=== PATIENT | female | born 1965 | race Caucasian/White ===

== ENCOUNTER 2018-04-12 14:45 | Outpatient (CLI) ==
--- NOTE | 2018-04-12 15:55 | DI ---
EXAM: Two views of the chest. History: Cough. Findings: Heart size is normal. No focal consolidation. No appreciable pleural fluid and no pneumo thorax. No acute osseous abnormalities. Postsurgical changes of the cervical spine Impression: No acute cardiopulmonary process.
== END 2018-04-12 14:46 | disposition home or self-care (01) ==
LOC: RHC-LAB 14:45
PROVIDERS: ATTEND General Practice
DX: R05 Cough (principal); R50.9 Fever, unspecified; R06.7 Sneezing; J31.0 Chronic rhinitis
CPT/HCPCS: 87502; 87651; 87801

== ENCOUNTER 2018-11-27 08:00 | Outpatient (RCR) ==
--- NOTE | 2018-11-15 16:45 | RS.OPPTEV2 ---
Date of Note: 11/15/18 Visit #: 1 Number of visits approved by Insurance: 19 visits Date of Evaluation: 11/15/18 Payer Source: Insurance ([employer]) Treatment Diagnosis: Cervicalgia History of Condition/Mechanism of Injury:: Patient reports neck pain for approximately the last three months. She reports no specific injury. Her history includes Anterior Cervical fusion 13 years ago. Prior Level of Function.....Patient was independent with: ADL's, Self Care, Work /Vocation, Caregiving, Ambulation/Mobility, Community Integration/Access Functional Limitations: Sleep, ADL's, Reaching Current Subjective/complaints:: Patient reports pain into the right scapula and a constant ache into the right arm. She denies symptoms on the left UE. Reports frequent headaches. States she wakes up 7-8 times per night due to pain. States driving very long causes increased pain in the scapula and tingling into the right UE. 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 She has used Icy hot patches and Epsom salt baths to get some relief of pain. She wants to avoid another neck surgery. Medical History Medical History: Hypertension Surgical History Comments:: ACF two levels 13 years ago, Lumbar fusion 25+ years ago, nephrectomy, Cholecystectomy Smoking Status: Current every day smoker Hx Home Medications: Atenolol, Flexeril, Ibuprofen PRN Patient's Goals: Her goal is to get relief of neck pain and avoid surgery. Pain Assessment - Pain Description Pain Location: right neck and periscapula area Pain Description: Aching Current Pain Intensity: 3/10 Worst Pain Intensity: 7/10 Functional Outcome Measure Neck Disability Index: 34 - G Codes & Severity Modifier G Codes & Modifier: NA Source of G Code score: NA Observation - Observation Posture: Forward Head, Rounded Shoulders Handedness: Right - ROM Comments: Cervical AROM is WFL's into flexion and extension. Rotation Left 75% of normal and Rotation Right 50-60% of normal. Extension and right rotation reproduces right scapular pain. Bilateral UE AROM is WFL's. - Strength Comments: Bilateral UE strength 4+/5. Palpation Comments:: Demonstrates tenderness over the right levator scapula and upper traps. Demonstrates minimal increased muscle tone in that area. Demonstrates moderate increased muscle tone in the left upper traps and bilateral lower cervical paraspinals. Sensation - Sensation Right Upper Extremity: Intact/Normal Left Upper Extremity: Intact/Normal Interventions - Exercise/Activities/Manual Therapy Exercises/Activities: Patient instructed in stretching into lateral flexion and rotation, as well as corner stretch. Manual Therapy: Patient received DTM to lower cervical paraspinals, upper and middle traps bilaterally. Demonstrates active trigger points along the superior border of the left scapula. Muscle tone is decreased to minimal bilaterally with manual therapy. Total minutes of Manual Therapy: 14 mins HOME EXERCISE PROGRAM: stretching into lateral flexion and rotation, as well as corner stretch. - Charges Timed Code Treatment Minutes: 14 mins Total Treatment Time: 55 mins Procedures billed for this date of service:: BERTHA Pacheco, Manual therapy EVALUATION COMPLEXITY LEVEL EVALUATION COMPLEXITY LEVEL: HISTORY: Low, EXAM OF BODY SYSTEMS: Low, CLINICAL PRESENTATION: Low, CLINICAL DECISION MAKING: Low Assessment Assessment: Patient presents to therapy with a diagnosis of Cervicalgia. She reports pain on the right side of the neck and into the right scapula. She exhibits muscle guarding along the lower cervical paraspinals and bilateral upper and middle traps. Reports interrupted sleep and difficulty with activities such as driving due to pain. She demonstrates potential to benefit from manual therapy, stretching and postural exercises to gain relief of pain. Patient Education: Education of diagnosis, Body/Joint mechanics, Home Exercise Program, Activity Modification, Education of Plan of Care Rehab Potential: Good Short Term Goals Goal #1: Right periscapular pain decreased to less than constant. Goal to be met by: 11/25/18 Goal #2: Muscle tone along cervical spine and upper traps decreased to min. Goal to be met by: 11/25/18 Goal #3: Right UE symptoms localized to the neck. Goal to be met by: 11/29/18 Goal #4: Pt to demonstrate good postural awareness. Goal to be met by: 11/29/18 Snf Goals Goal #1: Pt knows HEP and to continue ex's to maintain functional level at D/C. Goal to be met by: 01/04/19 Goal #2: Score on Neck Disability Index improved to 16. Goal to be met by: 01/04/19 Goal #3: Pt able to sleep at night with minimal interruption from neck pain. Goal to be met by: 01/04/19 Goal #4: Pt able to perform home and work activities with minimal neck pain. Goal to be met by: 01/04/19 Plan - Treatment to be Provided Procedures: Therapeutic Exercises, Therapeutic Activity, Manual Therapy, Patient Education Modalities: Electrical Stimulation, Ultrasound/Phonophoresis, Cryotherapy, Hot Packs, Mechanical Traction (Cervical traction) - Treatment Plan Frequency: 2-3 X week Duration: 6 weeks Dates of Teller Goals: 01/04/19 Expiration date of current Insurance Approval:: NA - Treatment Code (1) Cervicalgia Code(s): M54.2 - CERVICALGIA Comments: M54.2
--- NOTE | 2018-11-18 09:18 | RS.OPPTDN ---
Subjective Date of Note: 11/18/18 Visit #: 2 Number of visits approved by Insurance: 19 Date of Evaluation: 11/15/18 Payer Source: Insurance ([employer]) Treatment Diagnosis: Cervicalgia Current Subjective/complaints:: Patient reports her pain generally increases as the day progresses.She continues to have difficulty with sleeping .She is hopeful the therapy will help to avoid another surgery. Pain Assessment - Pain Description Pain Location: Cervical and R UE Pain Description: Radiating, Dull, Aching Current Pain Intensity: 3/10 - Treatment Modality: Ultrasound Parameters/Method Applied: 10 mins. @ 1.5 w/cm2,cont. mode to cervical and UT's region - Heat/Cryotherapy Treatment: Hot Pack (20 mins. prior to US) Interventions - Exercise/Activities/Manual Therapy Exercises/Activities: Reviewed HEP of stretching into lateral flexion and rotation, as well as corner stretch.Instructed in chin tucks also today. Total minutes of Exercise: 5 Manual Therapy: Patient received DTM bilaterally to lower cervical paraspinals, upper and middle traps.Trigger point pressure along each medial border of the scapulae. Total minutes of Manual Therapy: 20 HOME EXERCISE PROGRAM: stretching into lateral flexion and rotation, as well as corner stretch. - Charges Timed Code Treatment Minutes: 25 Total Treatment Time: 55 Procedures billed for this date of service:: hp,US,manual Assessment: Patient has significant hypertonus in bilateral upper traps today, along with multiple trigger points along the medial border of scapulae,greater on the R than L side.She has increased tenderness with palpation to C6 transverse process on the R.She is attentive ,compliant to HEP ,motivated to improve. Patient Education: Education of diagnosis, Body/Joint mechanics, Home Exercise Program, Home Safety, Activity Modification, Education of Plan of Care Patient demonstrates compliance with HEP?: Yes Short Term Goals Goal #1: Right periscapular pain decreased to less than constant. Goal to be met by: 11/25/18 Progress towards Goal:: Progressing Goal #2: Muscle tone along cervical spine and upper traps decreased to min. Goal to be met by: 11/25/18 Goal #3: Right UE symptoms localized to the neck. Goal to be met by: 11/29/18 Goal #4: Pt to demonstrate good postural awareness. Goal to be met by: 11/29/18 Progress towards Goal:: Progressing Associate Financial Advisor Goals Goal #1: Pt knows HEP and to continue ex's to maintain functional level at D/C. Goal to be met by: 01/04/19 Progress towards goal: Progressing Goal #2: Score on Neck Disability Index improved to 16. Goal to be met by: 01/04/19 Goal #3: Pt able to sleep at night with minimal interruption from neck pain. Goal to be met by: 01/04/19 Goal #4: Pt able to perform home and work activities with minimal neck pain. Goal to be met by: 01/04/19 Plan Dates of Associate Financial Advisor Goals: 01/04/19 Expiration date of current Insurance Approval:: 01/04/19 PLAN: Cont. skilled PT to reduce /eliminate cervical and R scapular pain.
--- NOTE | 2018-11-20 09:31 | RS.OPPTDN ---
Subjective Date of Note: 11/20/18 Visit #: 3 Number of visits approved by Insurance: 19 Date of Evaluation: 11/15/18 Payer Source: Insurance ([employer]) Treatment Diagnosis: Cervicalgia Current Subjective/complaints:: Patient reports relief after apst PT session.She did work last night for approximately 4 hours ,and had increased difficulty with sleeping last night.Her pain was elevated and cramping , radiating into the entire R UE / hand. Pain Assessment - Pain Description Pain Location: cervical / R UE Pain Description: Radiating, Dull, Aching, Chronic Current Pain Intensity: 4-5 Worst Pain Intensity: 9-10 last night - Treatment Modality: Ultrasound Parameters/Method Applied: 10 mins. , cont. mode @ 1.5 w/cm2 to cervical / UT's. Patient Position: Sitting - Heat/Cryotherapy Treatment: Hot Pack (20 mins. prior to US and cervical traction ) - Traction Treatment Method: Mechanical (Tolerated well for 8 mins. , reports cramping in the lower area of both scapulae.She feels this is due to history of LBP,sleeps on her side for comfort.), Intermittent, Cervical Patient Position: Supine Amount of Force Applied: 13 # Hold Time: 30 secs. Rest Time: 5 secs. Duration of treatment: 10 mins. Interventions - Exercise/Activities/Manual Therapy Exercises/Activities: Reviewed HEP while on moist heat. Total minutes of Exercise: 0 Manual Therapy: Patient received DTM bilaterally to lower cervical paraspinals, upper and middle traps.Trigger point pressure along each medial border of the scapulae. 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 Patient Education: Body/Joint mechanics, Home Exercise Program Patient demonstrates compliance with HEP?: Yes Short Term Goals Goal #1: Right periscapular pain decreased to less than constant. Goal to be met by: 11/25/18 Progress towards Goal:: Regressing (increased after traction today) Goal #2: Muscle tone along cervical spine and upper traps decreased to min. Goal to be met by: 11/25/18 Goal #3: Right UE symptoms localized to the neck. Goal to be met by: 11/29/18 Goal #4: Pt to demonstrate good postural awareness. Goal to be met by: 11/29/18 Progress towards Goal:: Progressing Half-Way Goals Goal #1: Pt knows HEP and to continue ex's to maintain functional level at D/C. Goal to be met by: 01/04/19 Progress towards goal: Progressing Goal #2: Score on Neck Disability Index improved to 16. Goal to be met by: 01/04/19 Goal #3: Pt able to sleep at night with minimal interruption from neck pain. Goal to be met by: 01/04/19 Goal #4: Pt able to perform home and work activities with minimal neck pain. Goal to be met by: 01/04/19 Plan Dates of Central Office Operator Goals: 01/04/19 Expiration date of current Insurance Approval:: 01/04/19 PLAN: Cont. skilled PT to reduce/eliminate cervical pain and radiculopathy .
--- NOTE | 2018-11-22 08:59 | RS.OPPTDN ---
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 Pain Assessment - Pain Description Pain Location: cervical/both shoulders Pain Description: Radiating, Dull, Aching, Chronic Current Pain Intensity: 7 Worst Pain Intensity: 10 - Treatment Modality: Ultrasound Parameters/Method Applied: 10 mins. @ 1.5 w/cm2,cont. mode to cervical /UT's. - Heat/Cryotherapy Treatment: Hot Pack (20 mins. prior to US 20 mins. cold after) Interventions - Exercise/Activities/Manual Therapy Exercises/Activities: withheld today due to pain. Total minutes of Exercise: 0 Manual Therapy: Patient received DTM bilaterally to lower cervical paraspinals, upper and middle traps.Trigger point pressure along each medial border of the scapulae. Total minutes of Manual Therapy: 0 HOME EXERCISE PROGRAM: stretching into lateral flexion and rotation, as well as corner stretch,chin tucks - Charges Timed Code Treatment Minutes: 10 Total Treatment Time: 30 Procedures billed for this date of service:: hp,US Assessment: Patient has elevated pain ,guarded posturedue to elevated pain today.She has increased tone in the UT's and cervical area.She undersrtands to hold the exercises until the pain subsides,resume as tolerated. Patient Education: Body/Joint mechanics, Home Safety, Activity Modification Patient demonstrates compliance with HEP?: Yes Short Term Goals Goal #1: Right periscapular pain decreased to less than constant. Goal to be met by: 11/25/18 Progress towards Goal:: Regressing (increased after traction today) Goal #2: Muscle tone along cervical spine and upper traps decreased to min. Goal to be met by: 11/25/18 Goal #3: Right UE symptoms localized to the neck. Goal to be met by: 11/29/18 Progress towards Goal:: Regressing (into both arms today) Goal #4: Pt to demonstrate good postural awareness. Goal to be met by: 11/29/18 Progress towards Goal:: Progressing Cutlery Grinder Goals Goal #1: Pt knows HEP and to continue ex's to maintain functional level at D/C. Goal to be met by: 01/04/19 Progress towards goal: Progressing Goal #2: Score on Neck Disability Index improved to 16. Goal to be met by: 01/04/19 Goal #3: Pt able to sleep at night with minimal interruption from neck pain. Goal to be met by: 01/04/19 Progress towards goal: Regressing Goal #4: Pt able to perform home and work activities with minimal neck pain. Goal to be met by: 01/04/19 Progress towards goal: Regressing Plan Dates of Cutlery Grinder Goals: 01/04/19 Expiration date of current Insurance Approval:: 01/04/19 PLAN: Cont. skilled PT ,reduce/eliminate cervical pain and radiculopathy.
--- NOTE | 2018-11-25 09:23 | RS.OPPTDN ---
Subjective Date of Note: 11/25/18 Visit #: 5 Number of visits approved by Insurance: na Date of Evaluation: 11/15/18 Payer Source: Insurance ([employer]) Treatment Diagnosis: Cervicalgia Current Subjective/complaints:: Patient reports her pain is less today ,used ice and heat ,able to retun to work normal shifts. Pain Assessment - Pain Description Pain Location: cervical/upper traps Pain Description: Dull, Aching Current Pain Intensity: 2-3/10 - Treatment Modality: Ultrasound Parameters/Method Applied: 10 mins. @ 1.5 w/cm2,cont. mode to cervical / upper traps . Patient Position: Sitting - Heat/Cryotherapy Treatment: Hot Pack (20 mins. prior to US) Interventions - Exercise/Activities/Manual Therapy Exercises/Activities: NA Total minutes of Exercise: o Manual Therapy: Patient received DTM bilaterally to lower cervical paraspinals, upper and middle traps.Trigger point pressure along each medial border of the scapulae. Total minutes of Manual Therapy: 20 HOME EXERCISE PROGRAM: stretching into lateral flexion and rotation, as well as corner stretch,chin tucks - Charges Timed Code Treatment Minutes: 20 Total Treatment Time: 40 Procedures billed for this date of service:: hp,US,manual therapy Assessment: Patient progressing ,has decreased guarding and less tone in the upper traps.She is doing her HEP as tolerated .She presents with a forward head posture today,but less guarded motion in the cervical region.She reports no pain between the scapulae at this time.She has improved awareness of her posture ,and body mechanics for work tasks and ADL's. Patient Education: Education of diagnosis, Body/Joint mechanics, Home Exercise Program, Home Safety, Activity Modification, Education of Plan of Care Patient demonstrates compliance with HEP?: Yes Short Term Goals Goal #1: Right periscapular pain decreased to less than constant. Goal to be met by: 11/25/18 Progress towards Goal:: Progressing (increased after traction today) Goal #2: Muscle tone along cervical spine and upper traps decreased to min. Goal to be met by: 11/25/18 Progress towards Goal:: Progressing Goal #3: Right UE symptoms localized to the neck. Goal to be met by: 11/29/18 Progress towards Goal:: Progressing Goal #4: Pt to demonstrate good postural awareness. 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 Goal to be met by: 01/04/19 Progress towards goal: Progressing Goal #2: Score on Neck Disability Index improved to 16. Goal to be met by: 01/04/19 Goal #3: Pt able to sleep at night with minimal interruption from neck pain. Goal to be met by: 01/04/19 Progress towards goal: Progressing Goal #4: Pt able to perform home and work activities with minimal neck pain. Goal to be met by: 01/04/19 Progress towards goal: Progressing Plan Dates of Black Studies Professor Goals: 01/04/19 Expiration date of current Insurance Approval:: 01/04/19 PLAN: Cont. skilled PT to reduce/eliminate cervical pain.
--- NOTE | 2018-11-27 09:44 | RS.OPPTDN ---
Subjective Date of Note: 11/27/18 Visit #: 6 Number of visits approved by Insurance: na Date of Evaluation: 11/15/18 Payer Source: Insurance ([employer]) Treatment Diagnosis: Cervicalgia Current Subjective/complaints:: Patient reports feeling better,but also has been of from work the past two days.She also reports doing the HEP. Pain Assessment - Pain Description Pain Location: cervical and medial borders of the scapulae Pain Description: Dull, Aching Current Pain Intensity: not rated - Treatment Modality: Ultrasound Parameters/Method Applied: 10 mins. @ 1.5 w/cm2,cont. mode to cervical and upper traps. Patient Position: Sitting - Heat/Cryotherapy Treatment: Hot Pack (20 mins. prior to US) Interventions - Exercise/Activities/Manual Therapy Exercises/Activities: 30 mins. total of supine cervical stretches into rotation ,lateral flexion ,chin tucks with retraction,occiital release.Trigger point pressure along the medial border of the R scapula in sitting.Postural exercises review in sitting ,doing scapular protraction "boxers punch " motion. Total minutes of Exercise: 30 Manual Therapy: na Total minutes of Manual Therapy: 0 HOME EXERCISE PROGRAM: stretching into lateral flexion and rotation, as well as corner stretch,chin tucks - Charges Timed Code Treatment Minutes: 40 Total Treatment Time: 60 Procedures billed for this date of service:: hp,US,ex 2 Assessment: Progressing well,has less frequency of R scapular pain at rest.She does have increased symptoms into the R UE with lateral flexion to the R today, but other motions of the C-spine do not cause radiculopathy.Her R scapula has tender trigger points at the upper region of the medial border. She is compliant to HEP. Patient Education: Body/Joint mechanics, Home Exercise Program, Activity Modification, Education of Plan of Care Patient demonstrates compliance with HEP?: Yes Short Term Goals Goal #1: Right periscapular pain decreased to less than constant. Goal to be met by: 11/25/18 Progress towards Goal:: Partially Met (less frequent today) Goal #2: Muscle tone along cervical spine and upper traps decreased to min. Goal to be met by: 11/25/18 Progress towards Goal:: Progressing Goal #3: Right UE symptoms localized to the neck. Goal to be met by: 11/29/18 Progress towards Goal:: Progressing Goal #4: Pt to demonstrate good postural awareness. Goal to be met by: 11/29/18 Progress towards Goal:: Partially Met Usp Goals Goal #1: Pt knows HEP and to continue ex's to maintain functional level at D/C. Goal to be met by: 01/04/19 Progress towards goal: Met Goal #2: Score on Neck Disability Index improved to 16. Goal to be met by: 01/04/19 Goal #3: Pt able to sleep at night with minimal interruption from neck pain. Goal to be met by: 01/04/19 Progress towards goal: Progressing Goal #4: Pt able to perform home and work activities with minimal neck pain. Goal to be met by: 01/04/19 Progress towards goal: Progressing Plan Dates of Framing Specialist Goals: 01/04/19 Expiration date of current Insurance Approval:: 01/04/19 PLAN: Cont. skilled PT to reduce/eliminate cervical and R UE/scapular pain.
--- NOTE | 2018-12-03 08:11 | RS.CXNS ---
Date of scheduled appointment: 12/03/18 Type: Cancel Reason for Cancel/NS: Called ,left voicemail,is working today.
--- NOTE | 2018-12-05 08:21 | RS.CXNS ---
Date of scheduled appointment: 12/05/18 Type: No Show Reason for Cancel/NS: Unknown.
== END 2018-12-14 23:59 ==
PROVIDERS: ATTEND Orthopaedic Surgery Orthopaedic Surgery of the Spine
DX: M54.2 Cervicalgia (principal)